=== PATIENT | male | born 1995 | race Caucasian/White ===

== ENCOUNTER 2019-02-23 09:09 | Day surgery (SDC) | payer BC, OTHER ==
[~2019-02-23 09:09] MED LIST: CEFAZOLIN 2 GM/50 ML (PMX) 50 ML IVPB; SOD CHLORIDE 0.9% 1,000 ML IV
[2019-02-23] MEDS ORDERED: LIDOCAINE 1% (MPF) 30 ML INJ (13:51)
[2019-02-23] MEDS ORDERED: POLYMYXIN/BACITRACIN 1L IRRIG (13:51)
[2019-02-23] MEDS ORDERED: ROCURONIUM 50 MG INJ (13:56)
[2019-02-23] MEDS ORDERED: MEPERIDINE 100 MG INJ (13:56)
[2019-02-23] MEDS ORDERED: SUCCINYLCHOLINE CHLORIDE 100 MG/5 ML SYG IV (13:56)
[2019-02-23] MEDS ORDERED: GLYCOPYRROLATE 0.4 MG INJ (13:56)
[2019-02-23] MEDS ORDERED: PROPOFOL 20 ML (13:56)
[2019-02-23] MEDS ORDERED: LIDOCAINE 2% (SDV) 5 ML INJ (13:56)
[2019-02-23] MEDS ORDERED: NEOSTIGMINE 3 MG/3 ML SYRINGE (13:56)
[2019-02-23] MEDS: LIDOCAINE 1% (MDV) 20 ML INJ INJ (14:00)
[2019-02-23] MEDS: BUPIVACAINE 0.5%/EPI (SDV) 30 ML INJ INJ (14:00)
[2019-02-23] MEDS ORDERED: CEFAZOLIN 1 GM INJ (14:17)
[2019-02-23] MEDS ORDERED: BUPIVACAINE 0.25%/EPI (SDV) 30 ML INJ (14:36)
[2019-02-23] MEDS ORDERED: HYDROCODONE/APAP (5/325) TAB PO (16:00)
[2019-02-23] MEDS: HYDROmorphONE 1 MG/5 ML IV SYRINGE IV ×2 (16:21→16:27)
[2019-02-23] MEDS ORDERED: OXYCODONE/ACETAMINOPHEN (5/325) TAB PO (16:30)
[2019-02-23] MEDS ORDERED: ONDANSETRON 4 MG INJ IV (16:30)
[2019-02-23] MEDS ORDERED: METOCLOPRAMIDE 10 MG INJ IV (16:30)
[2019-02-23] MEDS ORDERED: FENTAnyl 50 MCG/ML VIAL IV (16:30)
== END 2019-02-23 17:34 | disposition home or self-care (01) ==
LOC: SDS 09:09
DX: K40.90 Unilateral inguinal hernia, without obstruction or gangrene, not specified as recurrent (principal); D17.6 Benign lipomatous neoplasm of spermatic cord
CPT/HCPCS: 49505; 88302